=== PATIENT | male | born 1960 | race Caucasian/White ===

== ENCOUNTER 2016-07-21 14:46 | Emergency (ER) | payer BC ==
[2016-07-21] MEDS ORDERED: MORPHINE SULFATE INJ 2 MG ONE (14:50)
[2016-07-21] MEDS ORDERED: TORADOL 30 MG VIAL ONE (14:51)
[2016-07-21] MEDS ORDERED: NS 1000 ML 1,000 ML IV ONE (14:53)
[2016-07-21] MEDS ORDERED: MORPHINE SULFATE INJ 2 MG IVP ONE (14:53)
[2016-07-21] MEDS ORDERED: ZOFRAN INJ 4 MG VIAL IVP ONE (14:54)
[2016-07-21] MEDS ORDERED: TORADOL 30 MG VIAL IVP ONE (14:54)
--- NOTE | 2016-07-21 14:59 | DR.GENAD ---
HPI - Complaint/Symptoms Chief Complaint Doctors Comments: Patient presents with right flank pain since early am. He has a history of kidney stones but not recently. He denies any recent injury or fever. PMH - PMH Past Medical History: Diabetes Past Surgical History: Yes Surgical History: Abdominal Surgery, Weight Loss Surgery - Family History Family Medical History: Diabetes Mellitus, Cancer, [place], Hypertension - Social History Do you use any recreational Drugs:: No ROS - Review of Systems Constitutional: No Symptoms Reported Eyes: No Symptoms Reported ENTM: No Symptoms Reported Respiratoy: No Symptoms Reported Cardiovascular: No Symptoms Reported Gastrointestinal/Abdominal: No Symptoms Reported Genitourinary: No Symptoms Reported Neurological: No Symptoms Reported Musculoskeletal: No Symptoms Reported Integumentary: No Symptoms Reported Hematologic/Lymphatic: No Symptoms Reported Endocrine: No Symptoms Reported Psychiatric: No Symptoms Reported All Other Systems: Reviewed and Negative PE - Vital Signs Vitals: Temperature 98.0 F Pulse Rate 85 Respiratory Rate 24 Blood Pressure [Left Arm] 130/61 Blood Pressure [Right Arm] 114/76 Blood Pressure 140/84 O2 Sat by Pulse Oximetry 98 - General Limitations: No Limitations General Appearance: Alert, Anxious, In Distress - Head Head Exam: Normal Inspection, Atraumatic - Eyes Eye exam: Normal Appearance, PERRL, EOMI - ENT ENT Exam: Normal Exam External Ear Exam: Normal External Inspection TM/Canal Exam: Bilateral Normal Nose Exam: Normal Nose Exam Mouth Exam: Normal Inspection Throat Exam: Normal Inspection - Neck Neck Exam: Normal Inspection - Chest Chest Inspection: Normal Inspection - Respiratory Respiratory Exam: Normal Lung Sounds Bilat Respiratory Exam: Bilateral Clear to Auscultation - Cardiovascular Cardiovascular Exam: Regular Rate, Normal Rhythm - Abdominal Exam Abdominal Exam: Normal Inspection, Normal Bowel Sounds Abdominal Tenderness: negative: RUQ, RLQ, LUQ, LLQ, Epigastrium, Suprapubic, Diffuse, Mild, Moderate, Severe, Other - Extremities Extremities Exam: Normal Inspection - Back Back Exam: Normal Inspection - Neurologic Neurological Exam: Alert, Oriented X3, CN II-XII Intact - Psychiatric Psychiatric Exam: Normal Affect - Skin Skin Exam: Warm, Dry, Intact Course - Reevaluation 1st: Improved ROR - Labs Reviewed Result Diagrams: 07/21/16 16:43 07/21/16 16:43 Laboratory: WBC 9.4 X10^3/uL (3.6-10.0) 07/21/16 16:43 RBC 5.45 X10^6/uL (4.7-6.0) 07/21/16 16:43 Hgb 14.0 g/dL (13.5-18.0) 07/21/16 16:43 Hct 42.9 % (42.0-54.0) 07/21/16 16:43 MCV 78.7 fL (80.0-100.0) L 07/21/16 16:43 MCH 25.7 pg (27.0-34.0) L 07/21/16 16:43 MCHC 32.6 g/dL (33.0-35.0) L 07/21/16 16:43 RDW 16.1 % (11.6-16.5) 07/21/16 16:43 Plt Count 274 X10^3/uL (150.0-450.0) 07/21/16 16:43 Plt Count Comment Adequate (ADEQUATE) 07/21/16 16:43 MPV 7.4 fL (7.4-11.0) 07/21/16 16:43 Neut % 73.4 % (42.0-75.0) 07/21/16 16:43 Lymph % 19.0 % (21.0-51.0) L 07/21/16 16:43 [place] % 6.7 % (0.0-13.0) 07/21/16 16:43 Eos % 0.2 % (0.9-2.9) L 07/21/16 16:43 Baso % 0.7 % (0.2-1.0) 07/21/16 16:43 Neut # 6.9 x10^3/uL (2.2-4.8) H 07/21/16 16:43 Lymph # 1.8 X10^3/uL (1.3-2.9) 07/21/16 16:43 [place] # 0.6 x10^3/uL (0.3-0.8) 07/21/16 16:43 Eos # 0.0 x10^3/uL (0.0-0.2) 07/21/16 16:43 Baso # 0.1 X10^3/uL (0.0-0.1) 07/21/16 16:43 Absolute Nucleated RBC 0.0 /100WBC 07/21/16 16:43 Plt Morphology Comment Normal (NORMAL) 07/21/16 16:43 RBC Morphology Abnormal (NORMAL) 07/21/16 16:43 Hypochromasia Slight A 07/21/16 16:43 Poikilocytosis Slight A 07/21/16 16:43 Microcytosis Slight A 07/21/16 16:43 Sodium 139 mmol/L (136-145) 07/21/16 16:43 Corrected Sodium TNP 07/21/16 16:43 Potassium 4.1 mmol/L (3.5-5.1) 07/21/16 16:43 Chloride 104 mmol/L (98-107) 07/21/16 16:43 Carbon Dioxide 24.9 mmol/L (21-32) 07/21/16 16:43 BUN 12 mg/dL (7-18) 07/21/16 16:43 Creatinine 0.95 mg/dL (0.70-1.30) 07/21/16 16:43 Est GFR (MDRD) Af Amer > 60 (>60) 07/21/16 16:43 Est GFR (MDRD) Non-Af > 60 (>60) 07/21/16 16:43 Glucose 95 mg/dL (65-99) 07/21/16 16:43 Calcium 8.2 mg/dL (8.5-10.1) L 07/21/16 16:43 Corrected Calcium TNP 07/21/16 16:43 Total Bilirubin 1.10 mg/dL (0.2-1.0) H 07/21/16 16:43 AST 17 Units/L (15-37) 07/21/16 16:43 ALT 18 Units/L (12-78) 07/21/16 16:43 Alkaline Phosphatase 59 Units/L (46-116) 07/21/16 16:43 Creatine Kinase 91 Units/L (39-308) 07/21/16 16:43 CK-MB (CK-2) < 1.0 ng/mL (0-4.0) 07/21/16 16:43 CK/CKMB % Calc 1.1 % (<4) 07/21/16 16:43 Troponin I < 0.02 ng/mL (0-1.5) 07/21/16 16:43 Total Protein 6.6 g/dL (6.4-8.2) 07/21/16 16:43 Albumin 3.4 g/dL (3.4-5.0) 07/21/16 16:43 Globulin 3.2 g/dL (2.5-4.5) 07/21/16 16:43 Albumin/Globulin Ratio 1.1 Ratio (1.1-2.1) 07/21/16 16:43 - XRAY XRAY Interpreted by: Radiologist (Ct Abd/Pelv: Findings: Apart from mild atelectasis, the imaged throacic coontents are unremarkable. There is mild atherosclerosis. No urinary tract calculi or dilation of the collecting systems is identified. The solid abdominal visera maintain a normal ununchanced CT appearance. The patient is status post gastric bypass surgery as well as cholecystectomy. The remainder of the gastrointestional tract is unremarkable, to include a normal appendix. The pelvic contents are within normal limits. There is no freee flujid or free intraperitoneal air. No acute skeletal abnormality or worrisome skeletal lesion is identified. Impression: No acute abdominal or pelvic abnromality. Specifically, no evidence of hydroureteronephrosis of ureterolithiasis. CxR: There is diffuse peribronchial thickening, suggesting interstitial infection, such as bronchitis. Interstitial edema is less likely. No consolidation,pneumothora, or pelural effusion is seen ), Self - Diagnosis Discharge Problem: Flank pain, acute, Bronchitis - Discharge Plan Condition: Stable - Follow ups/Referrals Follow ups/Referrals: N[facility],None [Primary Care Provider] - 3 days - Instructions
[2016-07-21 15:06] VITALS: BP 140/84; BMI 25.1
[2016-07-21] MEDS ORDERED: MORPHINE SULFATE INJ 4 MG ONE (15:13)
[2016-07-21] MEDS ORDERED: MORPHINE SULFATE INJ 4 MG IVP ONE (15:13)
--- NOTE | 2016-07-21 16:24 | CT ---
Abdomen and pelvis CT without contrast: Indication: Right flank pain. Comparison: None available. Technique: Noncontrast CT imaging of the abdomen and pelvis was performed with multiplanar reformati ons. Findings: Apart from mild atelectasis, the imaged thoracic contents are unremarkable. There is mild atherosclerosis. No urinary tract calculi or dilation of the collecting systems is identified. The solid abdominal vi scera maintain a normal unenhanced CT appearance. The patient is status post gastric bypass surgery as well as cholecystectomy. The remainder of the g astrointestinal tract is unremarkable, to include a normal appendix. The pelvic contents are within normal limits. There is no free fluid or free intraperitoneal air. No acute skeletal abnormality or worrisome skeletal lesion is identified. Impression: No acute abdominal or pelvic abnormality. Specifically, no evidence of hydroureteronephr osis or ureterolithiasis. Reported By:
--- NOTE | 2016-07-21 16:49 | RAD ---
Single view chest series: Indication: Right flank pain. Comparison: Rib series dated March 01, 2012. Findings/impression: There is diffuse peribronchial thickening, suggesting interstitial infection, s uch as bronchitis. Interstitial edema is considered less likely. No consolidation, pneumothorax, or pleural effusion is seen. The cardiac silhouette and pulmonary va scularity are within normal limits. No acute skeletal abnormality is identified. Reported By:
[2016-07-21 16:56] LABS: BASOPHILS # (AUTO) 0.1 X10^3/uL (0.0-0.1); BASOPHILS % (AUTO) 0.7 % (0.2-1.0); EOSINOPHILS % (AUTO) 0.2 % (0.9-2.9); HEMATOCRIT 42.9 % (42.0-54.0); LYMPHOCYTES # (AUTO) 1.8 X10^3/uL (1.3-2.9); MEAN CORPUSCULAR HEMOGLOBIN 25.7 pg (27.0-34.0); MEAN CORPUSCULAR HGB CONC 32.6 g/dL (33.0-35.0); MEAN CORPUSCULAR VOLUME 78.7 fL (80.0-100.0); MEAN PLATELET VOLUME 7.4 fL (7.4-11.0); MONOCYTES # (AUTO) 0.6 x10^3/uL (0.3-0.8); MONOCYTES % (AUTO) 6.7 % (0.0-13.0); NEUTROPHILS # (AUTO) 6.9 x10^3/uL (2.2-4.8); NEUTROPHILS % (AUTO) 73.4 % (42.0-75.0); PLATELET COUNT 274 X10^3/uL (150.0-450.0); RED BLOOD COUNT 5.45 X10^6/uL (4.7-6.0); RED CELL DISTRIBUTION WIDTH 16.1 % (11.6-16.5); WHITE BLOOD COUNT 9.4 X10^3/uL (3.6-10.0)
[2016-07-21 17:09] LABS: BLOOD UREA NITROGEN 12 mg/dL (7-18); CALCIUM 8.2 mg/dL (8.5-10.1); CARBON DIOXIDE 24.9 mmol/L (21-32); CHLORIDE 104 mmol/L (98-107); CREATININE 0.95 mg/dL (0.70-1.30); GLUCOSE 95 mg/dL (65-99); SODIUM 139 mmol/L (136-145); TROPONIN I < 0.02 ng/mL (0-1.5); eGFR BLACK RACES > 60 (>60); eGFR NON BLACK RACES > 60 (>60)
--- NOTE | 2016-07-21 17:09 | RAD ---
HISTORY: Right hip and flank pain Study: Right hip two views, AP pelvis Comparison: None Findings: A single frontal view of the pelvis demonstrates the pelvic ring to be intact. No evidence for acut e cortical disruption or dislocation of the hip can be observed. Frog leg views of the hip fails to demonstrate evidence for fracture or significant joint abnormality. Impression: 1. Negative exam. Reported By:
[2016-07-21 17:13] LABS: HYPOCHROMASIA SLIGHT; PLATELET MORPHOLOGY COMMENT NORMAL (NORMAL); POIKILOCYTOSIS SLIGHT
[2016-07-21 17:14] LABS: ALANINE AMINOTRANSFERASE 18 Units/L (12-78); ALBUMIN 3.4 g/dL (3.4-5.0); ALKALINE PHOSPHATASE 59 Units/L (46-116); ASPARTATE AMINO TRANSFERASE 17 Units/L (15-37); CKMB % 1.1 % (<4); CREATINE KINASE 91 Units/L (39-308); CREATINE KINASE MB < 1.0 ng/mL (0-4.0); MICROCYTOSIS SLIGHT; TOTAL PROTEIN 6.6 g/dL (6.4-8.2)
== END 2016-07-21 17:47 | disposition home or self-care (01) ==
LOC: ER 14:57
DX: J40 Bronchitis, not specified as acute or chronic (principal); R10.84 Generalized abdominal pain
CPT/HCPCS: 36415; 71010; 73501; 74176; 80053; 82550; 82553; 84484; 85025; 93005; 93010; 96365; 96374; 96375; 99283; A4222; J1885; J2270